=== PATIENT | male | born 1940 | race Caucasian/White ===

== ENCOUNTER 2016-09-19 13:56 | Inpatient (IN) | payer OTHER, MEDICARE ==
[~2016-09-19] VITALS: Ht 170.2 cm; Wt 81.6 kg
[~2016-09-19 13:56] MED LIST: ALPR0.5T96 PO; CALC-995 PO; CLOP75TA2 PO; COR3.125 PO; DOCU-144 PO; DULO60CA41 PO; FLUT1AER IH; FURO-149 PO; IRBE150T26 PO; LIP10 PO; OMEP20CA10 PO; OXYC-133 PO; POTA-118 PO; PRAM0.122 PO; TIMO5DRO16 OP
[2016-09-19 14:11] VITALS: BP_SYST 100
[2016-09-19] MEDS ORDERED: NS 500 ML IV ONE (15:00)
[2016-09-19 15:39] LABS: BASOPHILS % (AUTO) 0.9 % (0.0-2.0); EOSINOPHILS # (AUTO) 0.1 K/uL (0.0-0.4); EOSINOPHILS % (AUTO) 1.6 % (0.0-4.0); HEMATOCRIT 31.4 % (36-54); HEMOGLOBIN 10.3 g/dL (14.0-18.0); LYMPHOCYTES # (AUTO) 1.2 K/uL (1.0-5.5); LYMPHOCYTES % (AUTO) 25.4 % (20.5-51.5); MEAN CORPUSCULAR HEMOGLOBIN 29 pg (27-31); MEAN CORPUSCULAR HGB CONC 33 % (32-36); MEAN CORPUSCULAR VOLUME 89 fL (79.0-98.0); MONOCYTES # (AUTO) 0.6 K/uL (0.0-1.0); MONOCYTES % (AUTO) 13.2 % (1.7-9.3); NEUTROPHILS # (AUTO) 2.9 K/uL (1.8-7.7); NEUTROPHILS % (AUTO) 58.9 % (40.0-70.0); PLATELET COUNT (AUTO) 208 K/uL (130-430); RED BLOOD CELL COUNT(AUTO) 3.54 MIL/uL (4.2-6.2); RED CELL DISTRIBUTION WIDTH 14.7 % (9.0-15.0); WHITE BLOOD COUNT (AUTO) 4.8 K/uL (4.8-10.8)
[2016-09-19 15:52] LABS: ANION GAP 8 (5-15); CALCIUM 8.4 mg/dL (8.4-11.0); CHLORIDE 98 mmol/L (98-107); GLUCOSE 99 mg/dL (70-99); POTASSIUM 4.4 mmol/L (3.5-5.1); SODIUM SERUM 133 mmol/L (136-145); UREA NITROGEN, BLOOD 17 mg/dL (8-21)
[2016-09-19 15:57] LABS: ALANINE AMINOTRANSFERASE 19 U/L (12-78); ALBUMIN 3.5 g/dL (3.4-4.8); ASPARTATE AMINOTRANSFERASE 24 U/L (10-37); TOTAL BILIRUBIN 0.5 mg/dL (0.0-1.0); TOTAL PROTEIN, SERUM 6.6 g/dL (6.4-8.3)
[2016-09-19 15:59] LABS: BILIRUBIN,URINE NEGATIVE (NEGATIVE); BLOOD, URINE NEGATIVE (NEGATIVE); CLARITY/URINE CLEAR (CLEAR); COLOR,URINE YELLOW (YELLOW); GLUCOSE,URINE NEGATIVE (NEGATIVE); KETONES,URINE NEGATIVE (NEGATIVE); LEUKOCYTE ESTERASE ,URINE NEGATIVE (NEGATIVE); NITRITE, URINE NEGATIVE (NEGATIVE); PROTEIN URINE TRACE (NEGATIVE); UROBILINOGEN,URINE 0.2 (0.2-1.0)
[2016-09-19 16:22] LABS: BACTERIA,URINE FEW /HPF (None Seen); RBC,URINE 0-3 /HPF (0-3)
[2016-09-19 16:23] LABS: FINE GRANULAR CASTS,URINE 0-3 /LPF (None Seen); MUCUS,URINE 1+ /LPF (None Seen)
[2016-09-19] MEDS ORDERED: NACL 0.9% 1,000 ML IV ONE (16:45)
[2016-09-19] MEDS ORDERED: PIPERACILLIN/TAZO 3.375 GM in NS 50 ML IV ONE (16:45)
[2016-09-19] MEDS ORDERED: PIPERACILLIN/TAZOBACTAM 3.375 GM/VIAL (ZOSYN) IV ONE (17:00)
[2016-09-19] MEDS ORDERED: MORPHINE 4 MG/ML INJ. SYRINGE IVP ONE (17:45)
[2016-09-19] MEDS ORDERED: ONDANSETRON HCL 4 MG/2 ML VIAL IVP ONE (17:45)
[2016-09-19 19:44] VITALS: BP_SYST 154
[2016-09-19] MEDS ORDERED: NACL 0.9% 1,000 ML IV SCH (21:00)
[2016-09-19] MEDS ORDERED: cefTRIAXone 1 GM in D5W 50 ML IV SCH (21:00)
[2016-09-19 21:11] VITALS: BP_SYST 168
[2016-09-19] MEDS ORDERED: ALPRAZolam 0.25 MG TABLET PO PRN (21:15)
[2016-09-19] MEDS ORDERED: OXYCODONE/ACETAMINOPHEN *10*mg/325 mg TABLET PO SCH (21:15)
[2016-09-19] MEDS ORDERED: CARVEDILOL 3.125 MG TABLET (COREG) PO ONE (22:45)
[2016-09-19] MEDS ORDERED: cefTRIAXone 1 GM IVPB PREMIX 50 ML IV ONE (23:35)
[2016-09-19] MEDS: cloNIDine HCL 0.1 MG TABLET PO PRN (23:35)
[2016-09-19 23:51] VITALS: BP_SYST 164
[2016-09-20] MEDS ORDERED: OXYCODONE/ACETAMINOPHEN *10*mg/325 mg TABLET PO PRN (02:45)
[2016-09-20 04:15] VITALS: BP_SYST 153
[2016-09-20 06:25] LABS: ANION GAP 7 (5-15); BASOPHILS # (AUTO) 0.1 K/uL (0.0-0.2); BASOPHILS % (AUTO) 0.8 % (0.0-2.0); CALCIUM 8.2 mg/dL (8.4-11.0); CHLORIDE 101 mmol/L (98-107); CREATININE 1.13 mg/dL (0.55-1.30); EOSINOPHILS # (AUTO) 0.1 K/uL (0.0-0.4); EOSINOPHILS % (AUTO) 1.6 % (0.0-4.0); GLUCOSE 86 mg/dL (70-99); HEMATOCRIT 31.1 % (36-54); LYMPHOCYTES # (AUTO) 1.5 K/uL (1.0-5.5); LYMPHOCYTES % (AUTO) 22.8 % (20.5-51.5); MEAN CORPUSCULAR HEMOGLOBIN 29 pg (27-31); MEAN CORPUSCULAR HGB CONC 32 % (32-36); MEAN CORPUSCULAR VOLUME 89 fL (79.0-98.0); MONOCYTES % (AUTO) 15.4 % (1.7-9.3); NEUTROPHILS # (AUTO) 3.9 K/uL (1.8-7.7); NEUTROPHILS % (AUTO) 59.4 % (40.0-70.0); PLATELET COUNT (AUTO) 165 K/uL (130-430); POTASSIUM 4.5 mmol/L (3.5-5.1); RED BLOOD CELL COUNT(AUTO) 3.49 MIL/uL (4.2-6.2); RED CELL DISTRIBUTION WIDTH 14.7 % (9.0-15.0); SODIUM SERUM 138 mmol/L (136-145); UREA NITROGEN, BLOOD 17 mg/dL (8-21); WHITE BLOOD COUNT (AUTO) 6.6 K/uL (4.8-10.8)
[2016-09-20 06:34] LABS: ALANINE AMINOTRANSFERASE 9 U/L (12-78); ALBUMIN 3.1 g/dL (3.4-4.8); ASPARTATE AMINOTRANSFERASE 22 U/L (10-37); TOTAL BILIRUBIN 1.1 mg/dL (0.0-1.0); TOTAL PROTEIN, SERUM 5.9 g/dL (6.4-8.3)
[2016-09-20] MEDS: cloNIDine HCL 0.1 MG TABLET PO PRN ×2 (07:42→12:27)
[2016-09-20 07:47] VITALS: BP_SYST 169
[2016-09-20] MEDS ORDERED: TIMOLOL MALEATE 0.25% OPHTHALMIC DROPS 5 ML OP SCH (09:00)
[2016-09-20] MEDS ORDERED: LOSARTAN POTASSIUM 50 MG TABLET (COZAAR) PO SCH (09:00)
[2016-09-20] MEDS ORDERED: POTASSIUM CHLORIDE 10 MEQ TAB.PRT.SR PO SCH (09:00)
[2016-09-20] MEDS ORDERED: CARVEDILOL 3.125 MG TABLET (COREG) PO SCH (09:00)
[2016-09-20] MEDS ORDERED: DULoxetine HCL 30 MG CAPSULE.DR (CYMBALTA) PO SCH (09:00)
[2016-09-20] MEDS ORDERED: FUROSEMIDE 40 MG TABLET PO SCH (09:00)
[2016-09-20] MEDS ORDERED: CLOPIDOGREL BISULFATE 75 MG TABLET PO SCH (09:00)
[2016-09-20] MEDS ORDERED: NON-FORMULARY MEDICATION (Calcium Carb & Cit/Vitamin D3 (Calcium + D3 Er Tablet) 1 EACH) PO SCH (09:00)
[2016-09-20] MEDS ORDERED: IRBESARTAN 150 MG TABLET (AVAPRO) PO SCH (09:00)
[2016-09-20] MEDS ORDERED: DOCUSATE SODIUM 100 MG CAPSULE PO SCH (09:00)
[2016-09-20] MEDS ORDERED: FLUTICASONE/VILANTEROL 1 EACH BLST.W.DEV IH SCH (09:00)
[2016-09-20 12:43] VITALS: BP_SYST 181
[2016-09-20 16:19] VITALS: BP_SYST 144
[2016-09-20 16:32] VITALS: BP_SYST 144
[2016-09-20] MEDS ORDERED: OMEPRAZOLE 20 MG CAPSULE.DR (PriLOSEC) PO SCH (18:00)
[2016-09-20] MEDS ORDERED: ATORVASTATIN 10 MG TABLET PO SCH (21:00)
[2016-09-20] MEDS ORDERED: PRAMIPEXOLE DI-HCL 0.25 MG TABLET PO SCH (21:00)
== END 2016-09-20 16:50 | disposition home or self-care (01) | DRG 314 ==
LOC: SED 13:56 → STU 18:51
PROVIDERS: ADMIT Internal Medicine; ATTEND Internal Medicine
DX: I95.9 Hypotension, unspecified (principal); N17.0 Acute kidney failure with tubular necrosis; I25.10 Atherosclerotic heart disease of native coronary artery without angina pectoris; G89.4 Chronic pain syndrome; I11.0 Hypertensive heart disease with heart failure; I50.9 Heart failure, unspecified; E78.5 Hyperlipidemia, unspecified; M45.9 Ankylosing spondylitis of unspecified sites in spine; I35.0 Nonrheumatic aortic (valve) stenosis; J44.9 Chronic obstructive pulmonary disease, unspecified; T48.1X5A Adverse effect of skeletal muscle relaxants [neuromuscular blocking agents], initial encounter; Y92.89 Other specified places as the place of occurrence of the external cause; Z79.899 Other long term (current) drug therapy; Z87.891 Personal history of nicotine dependence; Z86.73 Personal history of transient ischemic attack (TIA), and cerebral infarction without residual deficits
CPT/HCPCS: 36415; 71010; 80053; 81000-TC; 83605; 83880; 84484; 85025; 87040-TC; 87086; 93005; 93306; 96365; 96375; 99285; J0696; J2270; J2405; J2543; J7030; J7060

== ENCOUNTER 2018-06-20 07:03 | Emergency (ER) | payer OTHER, MEDICARE ==
[~2018-06-20] VITALS: Ht 167.6 cm; Wt 74.4 kg
[~2018-06-20 07:03] MED LIST changes: +ALPR0.5T PO; -ALPR0.5T96 PO; -POTA-118 PO; +POTA10TA15 PO
[2018-06-20 07:11] VITALS: BP_SYST 154
[2018-06-20 08:30] VITALS: BP_SYST 154
== END 2018-06-20 08:30 | disposition home or self-care (01) ==
LOC: SED 07:03
DX: S51.811A Laceration without foreign body of right forearm, initial encounter (principal); I10 Essential (primary) hypertension; Z86.79 Personal history of other diseases of the circulatory system; Z86.73 Personal history of transient ischemic attack (TIA), and cerebral infarction without residual deficits; Z79.899 Other long term (current) drug therapy; W01.0XXA Fall on same level from slipping, tripping and stumbling without subsequent striking against object, initial encounter; Y93.89 Activity, other specified; Y92.89 Other specified places as the place of occurrence of the external cause; Y99.8 Other external cause status
CPT/HCPCS: 72170-TC; 99283

== ENCOUNTER 2018-07-02 09:33 | Emergency (ER) | payer OTHER, MEDICARE ==
[~2018-07-02] VITALS: Ht 170.2 cm; Wt 74.8 kg
[2018-07-02 09:45] VITALS: BP_SYST 152
[2018-07-02 10:06] VITALS: BP_SYST 127
[2018-07-02 10:44] LABS: BASOPHILS % (AUTO) 0.5 % (0.0-2.0); EOSINOPHILS % (AUTO) 0.5 % (0.0-4.0); HEMATOCRIT 22.2 % (36-54); HEMOGLOBIN 7.2 g/dL (14.0-18.0); LYMPHOCYTES # (AUTO) 0.6 K/uL (1.0-5.5); LYMPHOCYTES % (AUTO) 8.2 % (20.5-51.5); MEAN CORPUSCULAR HEMOGLOBIN 28 pg (27-31); MEAN CORPUSCULAR HGB CONC 32 % (32-36); MEAN CORPUSCULAR VOLUME 86 fL (79.0-98.0); MONOCYTES # (AUTO) 1.2 K/uL (0.0-1.0); MONOCYTES % (AUTO) 16.2 % (1.7-9.3); NEUTROPHILS # (AUTO) 5.7 K/uL (1.8-7.7); NEUTROPHILS % (AUTO) 74.6 % (40.0-70.0); PLATELET COUNT (AUTO) 239 K/uL (130-430); RED BLOOD CELL COUNT(AUTO) 2.59 MIL/uL (4.2-6.2); RED CELL DISTRIBUTION WIDTH 19.8 % (9.0-15.0); WHITE BLOOD COUNT (AUTO) 7.7 K/uL (4.8-10.8)
[2018-07-02 10:53] LABS: ANION GAP 4 (5-15); CALCIUM 8.9 mg/dL (8.4-11.0); CHLORIDE 92 mmol/L (98-107); GLUCOSE 105 mg/dL (70-99); POTASSIUM 3.8 mmol/L (3.5-5.1); SODIUM SERUM 122 mmol/L (136-145); UREA NITROGEN, BLOOD 12 mg/dL (8-21)
[2018-07-02 10:58] LABS: ALANINE AMINOTRANSFERASE 17 U/L (12-78); ALBUMIN 3.3 g/dL (3.4-4.8); ASPARTATE AMINOTRANSFERASE 14 U/L (10-37); C-REACTIVE PROTEIN QUANT 2.2 mg/dL (0-0.5); TOTAL BILIRUBIN 1.2 mg/dL (0.0-1.0)
[2018-07-02 11:15] LABS: PROTHROMBIN TIME 9.8 SECS (9.5-12.5)
== END 2018-07-02 12:22 | disposition home or self-care (01) ==
LOC: SED 09:33
DX: S80.12XA Contusion of left lower leg, initial encounter (principal); E87.1 Hypo-osmolality and hyponatremia; D64.9 Anemia, unspecified; I10 Essential (primary) hypertension; Z86.73 Personal history of transient ischemic attack (TIA), and cerebral infarction without residual deficits; Z86.79 Personal history of other diseases of the circulatory system; Z79.899 Other long term (current) drug therapy; W19.XXXA Unspecified fall, initial encounter; Y93.89 Activity, other specified; Y92.89 Other specified places as the place of occurrence of the external cause; Y99.8 Other external cause status
CPT/HCPCS: 36415; 80053; 83605; 85025; 85610-TC; 85730-TC; 86140; 93971; 99284

== ENCOUNTER 2018-12-19 13:29 | Emergency (ER) | payer OTHER, MEDICARE ==
[~2018-12-19] VITALS: Ht 170.2 cm; Wt 72.6 kg
[~2018-12-19 13:29] MED LIST changes: -OMEP20CA10 PO; +OMEP20CA11 PO
[2018-12-19 13:41] VITALS: BP_SYST 158
[2018-12-19] MEDS ORDERED: DIPH-TET-PERTUS Vaccine 0.5 ML VIAL (ADACEL) I.M. ONE (14:00)
[2018-12-19 15:20] VITALS: BP_SYST 158
== END 2018-12-19 15:20 | disposition home or self-care (01) ==
LOC: SED 13:29
DX: S62.316A Displaced fracture of base of fifth metacarpal bone, right hand, initial encounter for closed fracture (principal); S51.011A Laceration without foreign body of right elbow, initial encounter; I10 Essential (primary) hypertension; Z86.79 Personal history of other diseases of the circulatory system; Z79.01 Long term (current) use of anticoagulants; Z79.899 Other long term (current) drug therapy; W19.XXXA Unspecified fall, initial encounter; Y93.89 Activity, other specified; Y92.89 Other specified places as the place of occurrence of the external cause; Y99.8 Other external cause status
CPT/HCPCS: 99283

== ENCOUNTER 2020-03-18 12:52 | Emergency (ER) | payer OTHER, MEDICARE, SELFPAY ==
[~2020-03-18] VITALS: Ht 170.2 cm; Wt 68.0 kg
[~2020-03-18 12:52] MED LIST changes: -OMEP20CA11 PO; +OMEP20CA15 PO
[2020-03-18 13:24] VITALS: BP_SYST 78
[2020-03-18 14:02] LABS: BASOPHILS % (AUTO) 0.5 % (0.0-2.0); EOSINOPHILS % (AUTO) 0.1 % (0.0-4.0); HEMATOCRIT 29.2 % (36-54); HEMOGLOBIN 10.2 g/dL (14.0-18.0); LYMPHOCYTES # (AUTO) 0.6 K/uL (1.0-5.5); LYMPHOCYTES % (AUTO) 8.3 % (20.5-51.5); MEAN CORPUSCULAR HEMOGLOBIN 38 pg (27-31); MEAN CORPUSCULAR HGB CONC 35 % (32-36); MEAN CORPUSCULAR VOLUME 109 fL (79.0-98.0); MONOCYTES # (AUTO) 0.7 K/uL (0.0-1.0); MONOCYTES % (AUTO) 8.7 % (1.7-9.3); NEUTROPHILS # (AUTO) 6.2 K/uL (1.8-7.7); NEUTROPHILS % (AUTO) 82.4 % (40.0-70.0); PLATELET COUNT (AUTO) 236 K/uL (130-430); RED BLOOD CELL COUNT(AUTO) 2.69 MIL/uL (4.2-6.2); RED CELL DISTRIBUTION WIDTH 17.4 % (9.0-15.0); WHITE BLOOD COUNT (AUTO) 7.5 K/uL (4.8-10.8)
[2020-03-18] MEDS ORDERED: PANTOPRAZOLE SODIUM 40 MG/VIAL (PROTONIX) IVP ONE (15:30)
[2020-03-18] MEDS ORDERED: PANTOPRAZOLE SODIUM 40 MG/VIAL (PROTONIX) ONE (16:28)
[2020-03-18 16:30] LABS: ANION GAP 12 (5-15); CHLORIDE 95 mmol/L (98-107); GLUCOSE 94 mg/dL (70-99); POTASSIUM 3.9 mmol/L (3.5-5.1); SODIUM SERUM 133 mmol/L (136-145)
[2020-03-18 16:31] LABS: ALANINE AMINOTRANSFERASE 20 U/L (12-78); ASPARTATE AMINOTRANSFERASE 18 U/L (10-37); CALCIUM 8.6 mg/dL (8.4-11.0); CREATININE 1.19 mg/dL (0.55-1.30); TOTAL BILIRUBIN 1.1 mg/dL (0.0-1.0); UREA NITROGEN, BLOOD 27 mg/dL (8-21)
[2020-03-18] MEDS ORDERED: NACL 0.9% 1,000 ML IV SCH (17:00)
[2020-03-18] MEDS ORDERED: LOSA25TA3 PO (18:21)
[2020-03-18] MEDS ORDERED: ALBU8.5H8 INH (18:21)
[2020-03-18] MEDS ORDERED: OXYB5TAB18 PO (18:21)
[2020-03-18] MEDS ORDERED: FESO4TAB PO (18:21)
[2020-03-18] MEDS ORDERED: LUBI24CA5 PO (18:21)
[2020-03-18] MEDS ORDERED: METH750T3 GT (18:21)
[2020-03-18 19:14] LABS: INR 1.1 (0.80-1.20)
[2020-03-18 19:25] VITALS: BP_SYST 103
[2020-03-18] MEDS ORDERED: ATORVASTATIN 10 MG TABLET PO SCH (21:00)
[2020-03-18] MEDS ORDERED: PANTOPRAZOLE SODIUM 40 MG/VIAL (PROTONIX) IVP SCH ×2 (21:00)
[2020-03-18] MEDS ORDERED: OXYBUTYNIN CHLORIDE 5 MG TABLET PO SCH (21:00)
[2020-03-19] MEDS ORDERED: LOSARTAN POTASSIUM 25 MG TABLET PO SCH (09:00)
[2020-03-19] MEDS ORDERED: DULoxetine HCL 30 MG CAPSULE.DR (CYMBALTA) PO SCH (09:00)
== END 2020-03-18 19:25 | disposition other institution (70) ==
LOC: SED 12:52 → STU 16:51 → UNDOADMIN 16:51 → STU 19:25 → UNDODISIN 19:28
DX: K92.2 Gastrointestinal hemorrhage, unspecified (principal); I10 Essential (primary) hypertension; K21.9 Gastro-esophageal reflux disease without esophagitis; Z86.73 Personal history of transient ischemic attack (TIA), and cerebral infarction without residual deficits; Z79.899 Other long term (current) drug therapy; Z20.822 Contact with and (suspected) exposure to COVID-19
CPT/HCPCS: 36415; 71045; 80053; 82550; 84484; 85025; 85610; 86886; 86900; 86901; 87426; 93005; 96374; 99285; C9113; G0378